=== PATIENT | female | born 1985 | race Two or more races ===

== ENCOUNTER 2016-07-10 07:35 | Inpatient (IN) | payer OTHER ==
--- NOTE | ~2016-07-10 | EKG ---
PATIENT: ANSON LAWLER UNIT #: [id number] Ventricular Rate: 93 BPM Atrial Rate: 93 BPM P-R Interval: 146 ms QRS Duration: 80 ms Q-T Interval: 356 ms QTC Calculation(Bezet): 442 ms P [place]: 21 degrees Calculated R [place]: 35 degrees Calculated T [place]: 29 degrees Diagnosis Line: Normal sinus rhythm Diagnosis Line: Early repolarization Otherwise normal ECG Diagnosis Line: No previous ECGs available Diagnosis Line: Confirmed by BALBIR COFFEY MD ([id number]) on 07/12/2016 Diagnosis Line: 4:02:24 PM INTERPRETING MD: ERLINDA VALLE
--- NOTE | ~2016-07-10 | DS ---
Unit #: [id number] #: [id number] Patient: ESTRELLA HERZOG [id number] [address] [address] [id number] I MR#: [id number] NAME: ESTRELLA HERZOG ROOM: [facility] Age: 30 Sex: F Admission Date: 07/10/2016 : 1985 Discharge Date: 07/11/2016 Attending Physician: Darek Gonzalez M.D. Primary Care Physician: No Primary Care Physician DISCHARGE SUMMARY ADMITTING DIAGNOSIS Chest pain. DISCHARGE DIAGNOSES 1. Myocarditis, with troponin elevation approximately 5.5. 2. Tobacco abuse. 3. Treated hypokalemia. 4. Recent strep throat diagnosis. 5. Mild obesity. 6. Possible obstructive sleep apnea. HOSPITAL COURSE Patient was admitted, and initial troponins were obtained which were elevated, point of care troponin at 4.13. Initial blood drawn troponin was 5.98, thus slightly higher and cardiac catheterization was performed. Cardiac catheterization showed no obstructive disease. Echo showed no wall motion abnormalities. There were minimal valve lesions. Further labs also showed hemoglobin of 13.6, platelet count of 186,000. Urine was positive for opiates. DISCHARGE MEDICATIONS Aspirin 81 mg daily. RECOMMENDATIONS 1. Follow up Cardiology in two to four weeks. 2. Continue nonsteroidal anti-inflammatories. Dictated by... Gavin Jacob M.D. RACHEL/jamshid TD: 07/11/2016 14:59 JOB #: [id number] Unit #: [id number] #: [id number] Patient: ESTRELLA HERZOG DISCHARGE SUMMARY Page 1 of 1 X Gavin Jacob MD X DISCHARGE SUMMARY
--- NOTE | ~2016-07-10 | EKG ---
PATIENT: ANSON LAWLER UNIT #: [id number] Ventricular Rate: 98 BPM Atrial Rate: 98 BPM P-R Interval: 152 ms QRS Duration: 84 ms Q-T Interval: 354 ms QTC Calculation(Bezet): 451 ms P [place]: 27 degrees Calculated R [place]: 47 degrees Calculated T [place]: 47 degrees Diagnosis Line: Normal sinus rhythm Diagnosis Line: Low voltage QRS Diagnosis Line: Baseline wander Otherwise normal ECG Diagnosis Line: No previous ECGs available Diagnosis Line: Confirmed by BALBIR COFFEY MD ([id number]) on 07/12/2016 Diagnosis Line: 4:02:12 PM INTERPRETING MD: ERLINDA VALLE
--- NOTE | ~2016-07-10 | HP ---
Unit #: [id number] #: [id number] Patient: ANSON LAWLER [id number] [address] [place], [place] [address] [id number] I MR#: [id number] NAME: ANSON LAWLER ROOM: 561 Age: 30 Sex: F Admission Date: 07/10/2016 : 1985 Attending Physician: Darek Gonzalez M.D. Primary Care Physician: No Primary Care Physician HISTORY AND PHYSICAL CHIEF COMPLAINT Chest pain. HISTORY OF PRESENT ILLNESS The patient is a 30-year-old Hebrew speaking female who presented to the emergency department with complaints of chest pain. Advice Nurse phone was used to speak with the patient, #[phone]. The patient states that she developed chest discomfort yesterday at 11 a.m. There was no exertional activity at that time. The patient describes the pain as an ache, "strong emotion," also left arm weakness. The chest pain was in the left pectoral area. The pain subsided, but then awoke her again at 1 a.m. and she had her bring her to the emergency department. She states that there was a dizziness associated with the pain, but no nausea, vomiting or diaphoresis. She felt the pain was worse when lying down or sitting, but would improve with standing and walking. She was treated in the emergency department with aspirin, 1 liter of normal saline, Lovenox, morphine, Zofran and 40 mEq of potassium. Right now she said she is pain free. The patient has recently been diagnosed with strep throat and was taking amoxicillin. The patient denies any pleuritic component or tenderness to her anterior chest wall. PAST CARDIAC TESTING HISTORY None. PAST MEDICAL HISTORY None. PAST SURGICAL HISTORY Bladder. SOCIAL HISTORY She smokes one-half pack daily. She denies alcohol use or illicit drug use. She currently works at [employer]. FAMILY HISTORY No family history of premature coronary artery disease. ALLERGIES No known drug allergies. HOME MEDICATIONS 1. Bactrim. 2. Keflex. 3. Lortab 10/500. Unit #: [id number] #: [id number] Patient: ANSON LAWLER 4. Flexeril. 5. Medrol Dosepak. 6. Amoxicillin for 2 days. (The patient denies taking Lortab or Flexeril to me. I tried to ask in several different ways. She seems unfamiliar with these medications. Her urine drug screen did test positive for opiates in the emergency room). REVIEW OF SYSTEMS GENERAL: Recent fever four days ago. SKIN: Denies recent rash or hives. HEENT: Has occasional headaches. Occasional decrease in distant vision. No hearing loss or epistaxis. She has had some throat soreness and dysphagia with her recent strep diagnosis. PULMONARY: Denies wheezing or shortness of breath. She has had a mild cough, but no hemoptysis. CARDIAC: Chest pain as discussed above. Denies palpitations, tachycardia. She denies orthopnea, but states that her snoring has recently been waking her from sleep. She also has an occasional sharp chest pain. GI: Denies nausea, vomiting, diarrhea or melena. : Denies hematuria or dysuria. EXTREMITIES: Denies swelling or claudication. SPINE: She has had some back pain with the anterior chest pain that she experienced earlier. NEUROLOGIC: Denies any stroke symptoms such as weakness or numbness on one side. Also denies syncope, but has had some dizziness. PHYSICAL EXAMINATION GENERAL: The patient is a well-developed, well-nourished, obese female in no acute distress. Awake, alert and oriented times three. VITALS: Blood pressure 107/70, heart rate 65 and regular, respiratory rate 12 and regular, temperature 98.7, O2 saturations 95% on room air. Weight 77.6 kg. SKIN: No rashes or hives. HEENT: Head is normocephalic, atraumatic. No xanthelasma. Mucosa pink and moist. No jugular venous distension or carotid bruits. SPINE: No kyphosis or scoliosis. CHEST: Clear to auscultation bilaterally without wheezes or rhonchi. Rare accessory muscle use. HEART: Regular rate and rhythm without murmur, gallop, rub or lift. There is no tenderness to the anterior chest wall to palpation. ABDOMEN: Soft, nontender and nondistended. Positive bowel sounds times four. The abdominal pulsation is not enlarged. EXTREMITIES: No clubbing, cyanosis or edema. NEUROLOGIC: Awake and oriented times three. DIAGNOSTIC STUDIES IMAGING: Chest x-ray shows no acute disease. LABORATORY: Free %4 is 1.15, TSH 2.65. Urine drug screen is positive for opiates. Troponin was 4.13 at 4:02 this morning, then 3.53 at 5:45. CK-MB 35.1. PT 10.2, INR 1.0, d-dimer 647, beta HCG negative. Sodium 137, potassium 3.2, chloride 104, CO2 23, BUN 11, creatinine 0.6, glucose 117. White blood cell count 11.3, hemoglobin 13.6, hematocrit 40.6, platelets 186. CARDIOVASCULAR: EKG shows normal sinus rhythm with no acute ST Unit #: [id number] #: [id number] Patient: ANSON LAWLER abnormalities. ASSESSMENT 1. Elevated troponin in the range of a non-ST elevation myocardial infarction. 2. Tobacco abuse. 3. Hypokalemia, supplemented. 4. Recent strep throat diagnosis and antibiotic treatment. 5. Obesity. 6. Possible obstructive sleep apnea. PLAN This case was discussed with Dr. Gavin Jacob. We will check a two-dimensional echo Doppler and based on these results will proceed with left heart catheterization. Non-ST elevation myocardial infarction versus myocarditis remain in the differential diagnosis. Dictated by Elvira Warren PYanethC. for Gavin Jacob M.D. OBDULIO/terri TD: 07/10/2016 09:54 JOB #: [id number] HISTORY AND PHYSICAL Page 1 of 1 X X HISTORY AND PHYSICAL
--- NOTE | ~2016-07-10 | CT16 ---
[facility] A Service of [facility] RADIOLOGY TEXT RESULTS PATIENT: ESTRELLA CLANCY LOCATION: [facility] : [birth year] UNIT #: [id number] AGE: [address]: Darek Gonzalez MD SEX: F ORDER DR: [id number] [facility] [address] [place], [place] [address] [id number] MR#: [id number] Acc #: [id number] NAME: ANSON LAWLER : 1985 SEX: F STUDY DATE/TIME: 07/10/2016 5:14 UNIT: [facility] ROOM: [facility] STUDY DESCRIPTION: CT Angio Chest for PE Attending Physician: Darek oGnzalez M.D. Ordering Physician: Junior Pro M.D. Primary Care Physician: No Primary Care Physician MEDICAL IMAGING REPORT This report is preliminary unless electronic signature is present EXAM CTA chest PE protocol with IV contrast. DATE 07/10/2016 HISTORY 30-year-old female with chest pain, fever since yesterday afternoon. Left arm pressure. COMPARISON AP portable chest, 07/10/2016 at 0456. PROCEDURE 2 mm axial images through the chest after IV contrast administration. 3-D coronal MIP reformatted images were obtained. This CT exam was performed with one or more of the following radiation dose reduction techniques: automatic exposure control, adjustment of mA and/or kV according to patient size, and iterative reconstruction. FINDINGS No pulmonary embolism. No thoracic aortic aneurysm or aortic dissection. No acute airspace disease. No pericardial effusion. No pleural effusion. No pathologic adenopathy. Multifocal right renal cortical scarring with atrophy and tiny nonobstructing right renal stone. No acute osseous abnormalities. IMPRESSION 1. No acute chest findings. No pulmonary embolism, aortic aneurysm, or aortic dissection. No acute airspace disease. 2. Multifocal right renal cortical scarring with right renal atrophy. Nonobstructing right renal stone. [facility] A Service of [facility] RADIOLOGY TEXT RESULTS PATIENT: ESTRELLA CLANCY LOCATION: [facility] : 81 UNIT #: [id number] AGE: [address]: Darek Gonzalez MD SEX: F ORDER DR: Dictated by... Alivia Mishra M.D. THIS IS AN ELECTRONICALLY VERIFIED REPORT Alivia Mishra M.D. at 07/15/2016 4:12 PM RITO/jessika TD: 07/10/2016 09:24 JOB #: [id number] MEDICAL IMAGING REPORT Page 1 of 1 COPY
--- NOTE | ~2016-07-10 | CR72 ---
[facility] A Service of [facility] & [facility] RADIOLOGY TEXT RESULTS PATIENT: ESTRELLA CLANCY LOCATION: [facility] [id number] : [birth year] UNIT #: [id number] AGE: [address]: Darek Gonzalez MD SEX: F ORDER DR: [id number] [facility] [address] [place], [place] [address] [id number] I MR#: [id number] Acc #: [id number] NAME: ANSON LAWLER : 1985 SEX: F STUDY DATE/TIME: 07/10/2016 4:56 UNIT: [facility] ROOM: [facility] STUDY DESCRIPTION: CR Chest Single View Portable Attending Physician: Darek Gonzalez M.D. Primary Care Physician: No Primary Care Physician MEDICAL IMAGING REPORT This report is preliminary unless electronic signature is present EXAM AP portable chest. DATE 07/10/2016 HISTORY Mid chest pain, dizziness today. FINDINGS A single AP portable view of the chest shows both lungs to be clear. The heart is normal in size. The mediastinal contour is normal. No significant bone abnormalities are seen. IMPRESSION Normal portable chest. Dictated by... Alivia Mishra M.D. THIS IS AN ELECTRONICALLY VERIFIED REPORT Alivia Mishra M.D. at 07/15/2016 4:12 PM RITO/jessika TD: 07/10/2016 09:19 JOB #: [id number] MEDICAL IMAGING REPORT Page 1 of 1 COPY
[2016-07-10 04:04] LABS: POC - CKMB 57.7 ng/mL (0.0-7.9); POC - TROPONIN 4.13 ng/mL (<=0.05)
[2016-07-10 04:10] LABS: BASOPHIL% 0.3 % (0-2.5); EOSINOPHIL# 0.1 X10e3 (0-0.7); EOSINOPHIL% 0.5 % (0.0-7.0); HEMATOCRIT 40.6 % (35.0-45.0); HEMOGLOBIN 13.6 gm/dL (12.0-16.0); LYMPHOCYTE# 1.6 X10e3 (1.0-3.5); LYMPHOCYTE% 13.8 % (17.0-45.0); MEAN CELL VOLUME 86.1 FL (83-96); MEAN CORPUSCULAR HEMOGLOBIN 28.9 PG (28-34); MEAN CORPUSCULAR HGB CONC 33.6 g/dL (30-36); MEAN PLATELET VOLUME 8.9 FL (6.5-11.5); MONOCYTE% 9.2 % (3.0-12.0); NEUTROPHIL# 8.6 X10e3 (1.5-7.1); NEUTROPHIL% 76.2 % (40-75); PLATELET COUNT 186 X10e3 (140-420); RED BLOOD COUNT 4.71 X10e (3.90-5.30); RED CELL DISTRIBUTION WIDTH 13.3 % (11.0-15.5); WHITE BLOOD COUNT 11.3 X10e3 (4.0-10.5)
[2016-07-10 04:11] LABS: DIFF IND NO
[2016-07-10 04:33] LABS: ALBUMIN SERUM 3.7 g/dL (3.5-5.0); BILIRUBIN, DIRECT 0.1 mg/dL (0.0-0.2); BILIRUBIN,INDIRECT 0.3 mg/dL (0.0-0.9); BILIRUBIN,TOTAL 0.4 mg/dL (0.2-2.0); BUN/CREATININE RATIO 18.33; CALCIUM SERUM 8.7 mg/dL (8.4-10.2); CREATININE SERUM 0.6 mg/dL (0.6-1.4); GLOM FILT RATE Estimated 120.6 mL/min (>60); POTASSIUM 3.2 mmol/L (3.5-5.1); PROTEIN TOTAL SERUM 7.4 g/dL (6.0-8.3)
[2016-07-10 04:57] LABS: PARTIAL THROMBOPLASTIN TIME 30.3 SECONDS (23.5-31.3); PROTHROMBIN TIME (PATIENT) 10.2 SECONDS (9.6-11.5)
[2016-07-10 05:47] LABS: POC - CKMB 35.1 ng/mL (0.0-7.9); POC - TROPONIN 3.43 ng/mL (<=0.05)
[2016-07-10 07:15] LABS: AMPHETAMINE NEG (NEG); BARBITURATES NEG (NEG); BENZODIAZEPINES NEG (NEG); COCAINE NEG (NEG); MARIJUANA NEG (NEG); OPIATES POS (NEG); TRICYCLIC ANTIDEPRESSANTS NEG (NEG); U METHADONE NEG (NEG)
[~2016-07-10 07:35] MED LIST: BACTRIM DS TABL1 TA1 PO; FLAGYL PO; FLEXERIL10 M1 PO; KEFLEX500 M1 PO; LORTAB 10-5001 EACH PO; MEDROL DOSEPAK4 MG PO; PHENERGAN25 M1 PO
[2016-07-10 08:19] LABS: THYROID STIMULATING HORMONE 2.65 uIU/ml (0.34-5.60)
[2016-07-10 08:25] LABS: FREE THYROXIN (T4) 1.15 ng/dL (0.58-1.64)
[2016-07-10] MEDS ORDERED: AMOXICILLIN500 M1 PO (09:18)
[2016-07-11] MEDS ORDERED: BAYER ASPIRIN325 M1 PO (10:19)
== END 2016-07-11 11:31 | disposition home or self-care (01) | DRG 282 ==
LOC: CED 07:35 → CEDOF 07:36 → C5B 08:35
PROVIDERS: Emergency Medicine
PROC: B32TYZZ Computerized Tomography (CT Scan) of Left Pulmonary Artery using Other Contrast (ICD-10-PCS; principal; 2016-07-10)
PROC: B32SYZZ Computerized Tomography (CT Scan) of Right Pulmonary Artery using Other Contrast (ICD-10-PCS; 2016-07-10)
PROC: B24BYZZ Ultrasonography of Heart with Aorta using Other Contrast (ICD-10-PCS; 2016-07-10)
PROC: 4A023N7 Measurement of Cardiac Sampling and Pressure, Left Heart, Percutaneous Approach (ICD-10-PCS; 2016-07-10)
PROC: B211YZZ Fluoroscopy of Multiple Coronary Arteries using Other Contrast (ICD-10-PCS; 2016-07-10)
PROC: B215YZZ Fluoroscopy of Left Heart using Other Contrast (ICD-10-PCS; 2016-07-10)
DX: I21.4 Non-ST elevation (NSTEMI) myocardial infarction (principal); E87.6 Hypokalemia; F17.210 Nicotine dependence, cigarettes, uncomplicated; E66.9 Obesity, unspecified; G47.33 Obstructive sleep apnea (adult) (pediatric); Z68.28 Body mass index [BMI] 28.0-28.9, adult
CPT/HCPCS: 71010; 71275; 80048; 80076; 80307; 82553; 84132; 84439; 84443; 84484; 84703; 85025; 85379; 85610; 85730; 93005; 93306; 96361; 96372; 96374; 96375; 99291; C1769; C1887; C1894; J1200; J1644; J1650; J2250; J2270; J2405; J2930; J3010; Q9967